=== PATIENT | female | born 1965 | race Hispanic/Latino ===

== ENCOUNTER → 2019-10-06 | Day surgery (SDC) | payer OTHER ==
[2019-10-05 13:31] LABS: BASOPHILS % 0.4 % (0.0-1.0); EOSINOPHILS # (AUTO) 0.1 (0.0-0.4); EOSINOPHILS % 0.7 % (0.0-6.0); HEMATOCRIT 37.6 % (34.2-44.1); HEMOGLOBIN 12.4 g/dL (12.0-16.0); LYMPHOCYTES # (AUTO) 1.4 (1.0-3.2); MEAN CORPUSCULAR HEMOGLOBIN 30.5 pg (28-32); MEAN CORPUSCULAR VOLUME 92.6 fL (81-99); MONOCYTES # (AUTO) 0.4 (0.2-0.8); MONOCYTES % 4.5 % (4.4-11.3); NEUTROPHILS # (AUTO) 6.5 (2.1-6.9); PLATELET COUNT 277 x10e3/uL (140-360); RED BLOOD COUNT 4.06 x10e6/uL (3.6-5.1); RED CELL DISTRIBUTION WIDTH 14.3 % (11.7-14.4)
[2019-10-05 13:51] LABS: ANION GAP 14.6 mmol/L (8-16); BLOOD UREA NITROGEN 8 mg/dL (7-26); BUN/CREATININE RATIO 14 (6-25); CALCIUM 9.5 mg/dL (8.4-10.2); CARBON DIOXIDE 24 mmol/L (22-29); CHLORIDE 104 mmol/L (98-107); CREATININE, SERUM 0.58 mg/dL (0.57-1.11); EST GLOMERULAR FILTRATION RATE > 60 ML/MIN (60-); GLUCOSE 96 mg/dL (74-118); POTASSIUM 3.6 mmol/L (3.5-5.1); SODIUM 139 mmol/L (136-145)
--- NOTE | 2019-10-05 14:03 | Diagnostic Imaging Report ---
EXAMINATION: CHEST 2 VIEWS INDICATION: Pre-operative COMPARISON: None FINDINGS: LINES/TUBES:None LUNGS:The lungs are well-inflated. No focal consolidation or pulmonary edema. PLEURA:No pleural effusion or pneumothorax. MEDIASTINUM:The cardiomediastinal silhouette appears normal in size and shape. BONES/SOFT TISSUES:No acute osseous injury. ABDOMEN:No free air under the diaphragm. IMPRESSION: No focal pneumonia or pulmonary edema. Signed by: Butch Sandhu MD on 10/05/2019 2:01 PM
[~2019-10-06] MED LIST: ACETAMINOPHEN325 M1 PO; BUPIVACAINE 0.25% 30ML SDV INJ ONE; CEFTRIAXONE SOD 1 GM/NS 50 ML 50 ML IV ONE; DEXAMETHASONE SOD PHOS INJ 4 MG/ML VIAL ONE; FENTANYL CITRATE/PF 100MCG/2 ML INJ ONE; GLYCOPYRROLATE INJ 0.2 MG/ML VIAL ONE; KETOROLAC TROMETHAMINE 30 MG/ML VIAL ONE; LIDOCAINE 1% W/EPINEPHRINE 20 ML VIAL ONE; LIDOCAINE HCL 1% LOCAL INJ 20 ML VIAL ONE; LIDOCAINE HCL 2% LOCAL INJ 5 ML SDV VIAL INJ ONE; MIDAZOLAM HCL 2 MG/2 ML VIAL ONE; NEOSTIGMINE 1 MG/ML 10ML VIAL ONE; ONDANSETRON HCL INJ 2MG/ML 2ML 2 MG/ML VIAL ONE; PROPOFOL IV EMULSION 10 MG/ML 20 ML VIAL ONE; ROCURONIUM BROMIDE 10 MG/ML 5ML VIAL ONE; SEVOFLURANE INHAL SOLN 250 ML PEN BTL ONE
--- OUTSIDE RECORDS SUMMARY | 2019-10-06 06:10 | XMS REPORT ---
Author Author [facility] Organization [facility] Address Unknown Phone Unavailable Care Team Providers Care Weight Engineer Name Role Phone Yady HEATH Unavailable Unavailable Payers Payer Name Policy Type Policy Number Effective Date Expiration Date Problems This patient has no known problems. Allergies, Adverse Reactions, Alerts Allergy Name Allergy Type Status Severity Reaction(s) Onset Date Inactive Date Treating Clinician Comments No Known Allergies DA Active U 2015-10-17 00:00:00 Medications This patient has no known medications. Results Test Description Test Time Test Comments Text Results Atomic Results Result Comments CHEST 2 VIEWS 2019-10-05 14:00:00 [place] [address] Patient Name: TINO PHILIP MR #: [id number] : 1965 Age/Sex: 54/F Req #: [id number] Adm Physician: Ordered by: PATT HEATH MD Report #: [id number] Location: OR Room/Bed: Procedure: [id number] DX/CHEST 2 VIEWS Exam Date: 10/05/19 Exam Time: 1330 REPORT STATUS: Signed EXAMINATION: CHEST 2 VIEWS INDICATION: Pre-operative COMPARISON: None FINDINGS: LINES/TUBES:None LUNGS:The lungs are well-inflated. No focal consolidation or pulmonary edema. PLEURA:No pleural effusion or pneumothorax. MEDIASTINUM:The cardiomediastinal silhouette appears normal in size and shape. BONES/SOFT TISSUES:No acute osseous injury. ABDOMEN:No free air under the diaphragm. IMPRESSION: No focal pneumonia or pulmonary edema. Signed by: Ashvin Flores MD on 10/05/2019 2:01 PM Dictated By: ASHVIN FLORES MD 140 Transcribed By: ALIS GREEN on 10/05/191400 COPY TO: PATT HEATH MD COMPREHENSIVE METABOLIC PANEL 2019-09-18 11:08:00 SODIUM (test code=NA) 141 mmol/L 136-145 POTASSIUM (test code=K) 3.7 mmol/L 3.5-5.1 CHLORIDE (test code=CL) 106.0 mmol/L 98-107 CARBON DIOXIDE (test code=CO2) 28.0 mmol/L 21-32 ANION GAP (test code=GAP) 10.7 10-20 GLUCOSE (test code=GLU) 82 mg/dL 74-106 BLOOD UREA NITROGEN (test code=BUN) 7 mg/dL 7-18 GLOMERULAR FILTRATION RATE (test code=GFR) > 60 mL/min >=60 Estimated GFR by using Modified MDRD formula.Chronic kidney disease is defined as either kidney damageor GFR <60 mL/min/1.73 m2 for >3 months. CREATININE (test code=CREAT) 0.60 mg/dL 0.55-1.02 Note change in reference range due to change in reagent. BUN/CREATININE RATIO (test code=BUN/CREA) 11.7 10-20 TOTAL PROTEIN (test code=PROT) 8.3 gram/dL 6.4-8.2 ALBUMIN (test code=ALB) 4.2 g/dL 3.4-5.0 GLOBULIN (test code=GLOB) 4.1 gram/dL 2.7-4.2 ALBUMIN/GLOBULIN RATIO (test code=A/G) 1.0 0.75-1.50 CALCIUM (test code=CA) 9.4 mg/dL 8.5-10.1 BILIRUBIN TOTAL (test code=BILT) 0.60 mg/dL 0.0-1.0 SGOT/AST (test code=AST) 34 IUnit/L 15-37 SGPT/ALT (test code=ALT) 26 IUnit/L 12-78 ALKALINE PHOSPHATASE TOTAL (test code=ALKP) 110 IUnit/L 45-117 Note change in reference range due to change in reagent. LIPID PROFILE (CORONARY RISK)2019-09-18 11:08:00* Test Item Value Reference Range Comments TRIGLYCERIDES (test code=TRIG) 94 mg/dL 20-150 CHOLESTEROL (test code=CHOL) 203 mg/dL 0-200 CHOLESTEROL/HDL RATIO (test code=CHOLHDL) 2.0 RATIO 0-4.9 RISK ASSOCIATED WITH CHOL/HDL RATIOS: Risk Male Female1/2 AVERAGE 3.43 3.27AVERAGE 4.97 4.442X AVERAGE 9.55 7.053X AVERAGE 23.39 11.04 REFERENCE VALUE IS RELATED TO RISK LEVELS ASRECOMMENDED BY THE EDEL. HEART, LUNG, AND BLOOD INST. HDL CHOLESTEROL (test code=HDL) 68 mg/dL 40-60 LIPOPROTEIN LDL (test code=LDL) 105 mg/dL 100-129 RN PERSONNEL, CONTACT PHYSICIAN IMMEDIATELY IF THIS IS A STROKE, AMI OR CAROTID STENOSIS PATIENT WHEN THE LDL >100 (1ST OCCURENCE, THIS ADMISSION) Reference Interval: mg/dL mmol/L Optimal <100 <2.6Near/above optimal 100-129 2.6- 3.3Borderline High 130-159 3.4-4.1High 160-189 4.1-4.9Very High >=190 >=4.9=========This LDL result is a direct measurement.========= T4 [id number] 11:08:00* Test Item Value Reference Range Comments T4 FREE (test code=T4F) 0.96 ng/dL 0.76-1.46 THYROID STIMULATING [id number] 11:08:00* Test Item Value Reference Range Comments THYROID STIMULATING HORMONE (test code=TSH) 5.130 uIU/mL 0.36-3.74 TSH REFERENCE RANGES: EUTHYROID: 0.35 - 4.3 mIU/mL HYPO : > 5.5 mIU/mL HYPER : < 0.35 mIU/mL VITAMIN D [id number] 11:08:00* Test Item Value Reference Range Comments VITAMIN D 25-HYDROXY (test code=VITD25) 14.6 ng/mL 30.0-100.0 Vitamin D deficiency has been defined by the [place] [employer] and an Endocrine Society practice guideline as alevel of serum 25-OH vitamin D less than 20 ng/mL (1,2).The Endocrine Society went on to further define vitamin Dinsufficiency as a level between 21 and 29 ng/mL (2).1. IOM ([place] [employer]). 2010. Dietary reference intakes for calcium and D. [place]: The National Academies Press.2. Kj MF, Marlene NC, Tre MCFARLAND, et al. Evaluation, treatment, and prevention of vitamin D deficiency: an Endocrine Society clinical practice guideline. JCEM. 2010; 96(7):1911-30.Performed At: [facility] [id number] Conteh MD Ph:[phone] performed at: [facility] [id number] COMPREHENSIVE METABOLIC [id number] 10:39:00* Test Item Value Reference Range Comments SODIUM (test code=NA) 141 mmol/L 136-145 POTASSIUM (test code=K) 3.7 mmol/L 3.5-5.1 CHLORIDE (test code=CL) 106.0 mmol/L 98-107 CARBON DIOXIDE (test code=CO2) 28.0 mmol/L 21-32 ANION GAP (test code=GAP) 10.7 10-20 GLUCOSE (test code=GLU) 82 mg/dL 74-106 BLOOD UREA NITROGEN (test code=BUN) 7 mg/dL 7-18 GLOMERULAR FILTRATION RATE (test code=GFR) > 60 mL/min >=60 Estimated GFR by using Modified MDRD formula.Chronic kidney disease is defined as either kidney damageor GFR <60 mL/min/1.73 m2 for >3 months. CREATININE (test code=CREAT) 0.60 mg/dL 0.55-1.02 Note change in reference range due to change in reagent. BUN/CREATININE RATIO (test code=BUN/CREA) 11.7 10-20 TOTAL PROTEIN (test code=PROT) 8.3 gram/dL 6.4-8.2 ALBUMIN (test code=ALB) 4.2 g/dL 3.4-5.0 GLOBULIN (test code=GLOB) 4.1 gram/dL 2.7-4.2 ALBUMIN/GLOBULIN RATIO (test code=A/G) 1.0 0.75-1.50 CALCIUM (test code=CA) 9.4 mg/dL 8.5-10.1 BILIRUBIN TOTAL (test code=BILT) 0.60 mg/dL 0.0-1.0 SGOT/AST (test code=AST) 34 IUnit/L 15-37 SGPT/ALT (test code=ALT) 26 IUnit/L 12-78 ALKALINE PHOSPHATASE TOTAL (test code=ALKP) 110 IUnit/L 45-117 Note change in reference range due to change in reagent. LIPID PROFILE (CORONARY RISK)2019-09-17 10:39:00* Test Item Value Reference Range Comments TRIGLYCERIDES (test code=TRIG) 94 mg/dL 20-150 CHOLESTEROL (test code=CHOL) 203 mg/dL 0-200 CHOLESTEROL/HDL RATIO (test code=CHOLHDL) 2.0 RATIO 0-4.9 RISK ASSOCIATED WITH CHOL/HDL RATIOS: Risk Male Female1/2 AVERAGE 3.43 3.27AVERAGE 4.97 4.442X AVERAGE 9.55 7.053X AVERAGE 23.39 11.04 REFERENCE VALUE IS RELATED TO RISK LEVELS ASRECOMMENDED BY THE EDEL. HEART, LUNG, AND BLOOD INST. HDL CHOLESTEROL (test code=HDL) 68 mg/dL 40-60 LIPOPROTEIN LDL (test code=LDL) 105 mg/dL 100-129 RN PERSONNEL, CONTACT PHYSICIAN IMMEDIATELY IF THIS IS A STROKE, AMI OR CAROTID STENOSIS PATIENT WHEN THE LDL >100 (1ST OCCURENCE, THIS ADMISSION) Reference Interval: mg/dL mmol/L Optimal <100 <2.6Near/above optimal 100-129 2.6- 3.3Borderline High 130-159 3.4-4.1High 160-189 4.1-4.9Very High >=190 >=4.9=========This LDL result is a direct measurement.========= T4 [id number] 10:39:00* Test Item Value Reference Range Comments T4 FREE (test code=T4F) 0.96 ng/dL 0.76-1.46 THYROID STIMULATING [id number] 10:39:00* Test Item Value Reference Range Comments THYROID STIMULATING HORMONE (test code=TSH) 5.130 uIU/mL 0.36-3.74 TSH REFERENCE RANGES: EUTHYROID: 0.35 - 4.3 mIU/mL HYPO : > 5.5 mIU/mL HYPER : < 0.35 mIU/mL VITAMIN D [id number] 10:39:00* Test Item Value Reference Range Comments VITAMIN D 25-HYDROXY (test code=VITD25) ng/mL 30-100 URINALYSIS [id number] 10:24:00* Test Item Value Reference Range Comments UA COLOR (test code=COLU) COLORLESS YELLOW UA APPEARANCE (test code=APPU) CLEAR CLEAR UA GLUCOSE DIPSTICK (test code=DGLUU) NEGATIVE mg/dL NEGATIVE UA BILIRUBIN DIPSTICK (test code=BILU) NEGATIVE mg/dL NEGATIVE UA KETONE DIPSTICK (test code=KETU) NEGATIVE mg/dL NEGATIVE UA SPECIFIC GRAVITY (test code=SGU) 1.004 1.001-1.035 UA BLOOD DIPSTICK (test code=MARGARITA) 0.1 mg/dL (1+) mg/dL NEGATIVE UA PH DIPSTICK (test code=DEEPAK) 6.5 5.0-8.0 UA PROTEIN DIPSTICK (test code=PROU) NEGATIVE mg/dL NEGATIVE UA UROBILINIOGEN DIPSTICK (test code=URO) Normal mg/dL NEGATIVE UA NITRITE DIPSTICK (test code=SEAMUS) NEGATIVE NEGATIVE UA LEUKOCYTE ESTERASE W REFLEX (test code=LEUUR) NEGATIVE Lisseth/uL NEGATIVE UA WBC (test code=WBCU) 0-5 per HPF 0-5 UA RBC (test code=RBCU) 0-2 #/HPF 0-5 UA EPITHELIAL CELLS (test code=EPIU) FEW per HPF FEW UA BACTERIA (test code=BACU) NONE #/HPF NONE UA MUCUS (test code=MUCU) FEW #/LPF FEW UA YEAST (test code=YEASTU) NONE #/HPF NONE UA OVAL FAT BODY (test code=OFBU) NONE NONE [id number] 10:23:00* Test Item Value Reference Range Comments GLYCOSYLATED HEMOGLOBIN (HA1C) (test code=GLYHGB) 5.5 % HbA1 SUGGESTED DIAGNOSIS: HbA1C (%) Diabetic >6.4Prediabetes 5.7 - 6.4Normal <5.7 ESTIMATED AVERAGE GLUCOSE (test code=EAG) 111 MG/DL COMPREHENSIVE METABOLIC [id number] 10:22:00* Test Item Value Reference Range Comments SODIUM (test code=NA) 141 mmol/L 136-145 POTASSIUM (test code=K) 3.7 mmol/L 3.5-5.1 CHLORIDE (test code=CL) 106.0 mmol/L 98-107 CARBON DIOXIDE (test code=CO2) mmol/L 21-32 ANION GAP (test code=GAP) 10-20 GLUCOSE (test code=GLU) mg/dL 74-106 BLOOD UREA NITROGEN (test code=BUN) mg/dL 7-18 GLOMERULAR FILTRATION RATE (test code=GFR) mL/min >=60 CREATININE (test code=CREAT) mg/dL 0.55-1.02 BUN/CREATININE RATIO (test code=BUN/CREA) 10-20 TOTAL PROTEIN (test code=PROT) gram/dL 6.4-8.2 ALBUMIN (test code=ALB) g/dL 3.4-5.0 GLOBULIN (test code=GLOB) gram/dL 2.7-4.2 ALBUMIN/GLOBULIN RATIO (test code=A/G) 0.75-1.50 CALCIUM (test code=CA) mg/dL 8.5-10.1 BILIRUBIN TOTAL (test code=BILT) mg/dL 0.0-1.0 SGOT/AST (test code=AST) IUnit/L 15-37 SGPT/ALT (test code=ALT) IUnit/L 12-78 ALKALINE PHOSPHATASE TOTAL (test code=ALKP) IUnit/L 45-117 LIPID PROFILE (CORONARY RISK)2019-09-17 10:22:00* Test Item Value Reference Range Comments TRIGLYCERIDES (test code=TRIG) mg/dL 20-150 CHOLESTEROL (test code=CHOL) mg/dL 0-200 CHOLESTEROL/HDL RATIO (test code=CHOLHDL) RATIO 0-4.9 HDL CHOLESTEROL (test code=HDL) mg/dL 40-60 LIPOPROTEIN LDL (test code=LDL) mg/dL 100-129 T4 [id number] 10:22:00* Test Item Value Reference Range Comments T4 FREE (test code=T4F) ng/dL 0.76-1.46 THYROID STIMULATING [id number] 10:22:00* Test Item Value Reference Range Comments THYROID STIMULATING HORMONE (test code=TSH) uIU/mL 0.36-3.74 VITAMIN D [id number] 10:22:00* Test Item Value Reference Range Comments VITAMIN D 25-HYDROXY (test code=VITD25) ng/mL 30-100 - US HEAD AND [id number] 10:14:00 Name: TINO PHILIP [facility] : 1965 Age/S: 54 / F [address] [facility] Unit #: [id number] Loc: [place] [address] 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 This may represent an epidermal inclusion cyst. Location: [facility] at 1014 Reported and signed by: Nagi Thorpe MD CC: Luz Aguilera Technologist: VICTORINA LAZAR RT(R),RDMS Trnscb Date/Time: 09/17/2019 (101) t.SDR.RR31 Orig Print D/T: S: 09/17/2019 (1017) Probe: PAGE 1 Signed Report CBC W/AUTO [id number] 09:48:00* Test Item Value Reference Range Comments WHITE BLOOD CELL (test code=WBC) 6.4 K/mm3 4.5-12.5 RED BLOOD CELL (test code=RBC) 4.22 mill/mm3 3.7-5.2 HEMOGLOBIN (test code=HGB) 13.0 gram/dL 11.5-15.5 HEMATOCRIT (test code=HCT) 39.4 % 36.0-46.0 MEAN CELL VOLUME (test code=MCV) 93.4 fL 80-98 MEAN CELL HGB (test code=MCH) 30.8 picogram 27.0-33.0 MEAN CELL HGB CONCETRATION (test code=MCHC) 33.0 gram/dL 33.0-36.0 RED CELL DISTRIBUTION WIDTH (test code=RDW) 14.9 % 11.6-16.2 RED CELL DISTRIBUTION WIDTH SD (test code=RDW-SD) 50.9 fL 37.0-51.0 PLATELET COUNT (test code=PLT) 258 K/mm3 150-450 MEAN PLATELET VOLUME (test code=MPV) 9.1 fL 6.7-11.0 NEUTROPHIL % (test code=NT%) 58.7 % 39.0-69.0 IMMATURE GRANULOCYTE % (test code=IG%) 0.2 % 0.0-5.0 LYMPHOCYTE % (test code=LY%) 31.0 % 25.0-55.0 MONOCYTE % (test code=MO%) 6.6 % 0.0-10.0 EOSINOPHIL % (test code=EO%) 3.0 % 0.0-5.0 BASOPHIL % (test code=BA%) 0.5 % 0.0-1.0 NUCLEATED RBC % (test code=NRBC%) 0.0 % 0-0 NEUTROPHIL # (test code=NT#) 3.75 K/mm3 1.8-7.7 IMMATURE GRANULOCYTE # (test code=IG#) 0.01 x10 3/uL 0-0.03 LYMPHOCYTE # (test code=LY#) 1.98 K/mm3 1.0-5.0 MONOCYTE # (test code=MO#) 0.42 K/mm3 0-0.8 EOSINOPHIL # (test code=EO#) 0.19 K/mm3 0.0-0.5 BASOPHIL # (test code=BA#) 0.03 K/mm3 0.0-0.2 NUCLEATED RBC # (test code=NRBC#) 0.00 K/mm3 0.0-0.1 CBC W/AUTO [id number] 09:46:00* Test Item Value Reference Range Comments WHITE BLOOD CELL (test code=WBC) K/mm3 4.5-12.5 RED BLOOD CELL (test code=RBC) mill/mm3 3.7-5.2 HEMOGLOBIN (test code=HGB) 13.0 gram/dL 11.5-15.5 HEMATOCRIT (test code=HCT) 39.4 % 36.0-46.0 MEAN CELL VOLUME (test code=MCV) fL 80-98 MEAN CELL HGB (test code=MCH) picogram 27.0-33.0 MEAN CELL HGB CONCETRATION (test code=MCHC) gram/dL 33.0-36.0 RED CELL DISTRIBUTION WIDTH (test code=RDW) % 11.6-16.2 RED CELL DISTRIBUTION WIDTH SD (test code=RDW-SD) fL 37.0-51.0 PLATELET COUNT (test code=PLT) K/mm3 150-450 MEAN PLATELET VOLUME (test code=MPV) fL 6.7-11.0 NEUTROPHIL % (test code=NT%) % 39.0-69.0 IMMATURE GRANULOCYTE % (test code=IG%) % 0.0-5.0 LYMPHOCYTE % (test code=LY%) % 25.0-55.0 MONOCYTE % (test code=MO%) % 0.0-10.0 EOSINOPHIL % (test code=EO%) % 0.0-5.0 BASOPHIL % (test code=BA%) % 0.0-1.0 NEUTROPHIL # (test code=NT#) K/mm3 1.8-7.7 LYMPHOCYTE # (test code=LY#) K/mm3 1.0-5.0 MONOCYTE # (test code=MO#) K/mm3 0-0.8 EOSINOPHIL # (test code=EO#) K/mm3 0.0-0.5 BASOPHIL # (test code=BA#) K/mm3 0.0-0.2 CBC W/O [id number] 00:51:00* Test Item Value Reference Range Comments WHITE BLOOD CELL (test code=WBC) 6.8 K/mm3 4.5-12.5 RED BLOOD CELL (test code=RBC) 4.30 mill/mm3 3.7-5.2 HEMOGLOBIN (test code=HGB) 13.1 gram/dL 11.5-15.5 HEMATOCRIT (test code=HCT) 39.7 % 36.0-46.0 MEAN CELL VOLUME (test code=MCV) 92.3 fL 80-98 MEAN CELL HGB (test code=MCH) 30.5 picogram 27.0-33.0 MEAN CELL HGB CONCETRATION (test code=MCHC) 33.0 gram/dL 33.0-36.0 RED CELL DISTRIBUTION WIDTH (test code=RDW) 14.6 % 11.6-16.2 PLATELET COUNT (test code=PLT) 221 K/mm3 150-450 MEAN PLATELET VOLUME (test code=MPV) 9.3 fL 6.7-11.0 CBC W/O [id number] 00:50:00* Test Item Value Reference Range Comments WHITE BLOOD CELL (test code=WBC) K/mm3 4.5-12.5 RED BLOOD CELL (test code=RBC) mill/mm3 3.7-5.2 HEMOGLOBIN (test code=HGB) 13.1 gram/dL 11.5-15.5 HEMATOCRIT (test code=HCT) 39.7 % 36.0-46.0 MEAN CELL VOLUME (test code=MCV) fL 80-98 MEAN CELL HGB (test code=MCH) picogram 27.0-33.0 MEAN CELL HGB CONCETRATION (test code=MCHC) gram/dL 33.0-36.0 RED CELL DISTRIBUTION WIDTH (test code=RDW) % 11.6-16.2 PLATELET COUNT (test code=PLT) K/mm3 150-450 MEAN PLATELET VOLUME (test code=MPV) fL 6.7-11.0 BASIC METABOLIC [id number] 00:41:00* Test Item Value Reference Range Comments SODIUM (test code=NA) 139 mmol/L 136-145 POTASSIUM (test code=K) 3.5 mmol/L 3.5-5.1 CHLORIDE (test code=CL) 104.0 mmol/L 98-107 CARBON DIOXIDE (test code=CO2) 29.0 mmol/L 21-32 ANION GAP (test code=GAP) 9.5 10-20 GLUCOSE (test code=GLU) 83 mg/dL 74-106 BLOOD UREA NITROGEN (test code=BUN) 15 mg/dL 7-18 GLOMERULAR FILTRATION RATE (test code=GFR) > 60 mL/min >=60 Estimated GFR by using Modified MDRD formula.Chronic kidney disease is defined as either kidney damageor GFR <60 mL/min/1.73 m2 for >3 months. CREATININE (test code=CREAT) 0.70 mg/dL 0.55-1.02 Note change in reference range due to change in reagent. BUN/CREATININE RATIO (test code=BUN/CREA) 21.4 10-20 CALCIUM (test code=CA) 9.5 mg/dL 8.5-10.1 [id number] 00:41:00* Test Item Value Reference Range Comments TROPONIN-I (test code=TROPI) <0.015 ng/mL 0-0.045 BASIC METABOLIC [id number] 00:34:00* Test Item Value Reference Range Comments SODIUM (test code=NA) 139 mmol/L 136-145 POTASSIUM (test code=K) 3.5 mmol/L 3.5-5.1 CHLORIDE (test code=CL) 104.0 mmol/L 98-107 CARBON DIOXIDE (test code=CO2) mmol/L 21-32 ANION GAP (test code=GAP) 10-20 GLUCOSE (test code=GLU) mg/dL 74-106 BLOOD UREA NITROGEN (test code=BUN) mg/dL 7-18 GLOMERULAR FILTRATION RATE (test code=GFR) mL/min >=60 CREATININE (test code=CREAT) mg/dL 0.55-1.02 BUN/CREATININE RATIO (test code=BUN/CREA) 10-20 CALCIUM (test code=CA) mg/dL 8.5-10.1 [id number] 00:34:00* Test Item Value Reference Range Comments TROPONIN-I (test code=TROPI) ng/mL 0-0.045 - XR CHEST 1 [id number] 00:20:00 FAX: Ivan Fernandes NP [phone] Winner: St: REG Name: TINO MONTEMAYOR [facility] : [birth year] Age/S: 53/F [address] [facility] Unit #: [id number] Loc: [place] [address] 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 COMPARISON: None available time of interpre tation. FINDINGS: Single AP view of the chest is pro vided. Heart size and vascularity are within normal limits. The juan c gs are clear of focal consolidation. No effusion, pneumothorax, or acute osseous abnormality. IMPRESSION: No radiographic evidence of acute cardiopulmonary process. at 0020 Reported and si gned by: Isaac Garrido MD CC: Ivan Fernandes NP Technologist: Ally Echavarria Trnscrd Date/Time/By: 01/16/2019 (0020) : By: [email or web address] Orig Print D/T: S: 01/16/2019 (0023) PAGE 1 Signed Report
[2019-10-06 12:55] VITALS: BP 110/70
--- NOTE | 2019-10-06 18:54 | Operative Report ---
DATE OF PROCEDURE: 10/06/2019 SURGEON: Tyson Barlow MD PREOPERATIVE DIAGNOSIS: Large mass of the posterior neck and base of the skull. POSTOPERATIVE DIAGNOSIS: Large mass of the posterior neck and base of the skull. OPERATION PERFORMED: Wide excision of large cystic mass of posterior neck and occipital skull with flap closure. ANESTHESIA: General. COMPLICATIONS: None. ESTIMATED BLOOD LOSS: 50 mL. DESCRIPTION OF PROCEDURE: With the patient lying in bed in the prone position under good general endotracheal anesthesia, the back of the neck and scalp and upper shoulders were prepped with Hibiclens solution and draped in the usual manner. The area surrounding the large mass was then infiltrated with 0.25% Marcaine and 1% xylocaine with epinephrine. An elliptical incision was then made to include the skin overlying the center of the mass and then flaps were then developed right at the edge of the wall of the cystic mass all the way around. The mass extended all the way up to the skull and deep wards to the fascia and the muscles of the lateral neck. This was slowly and carefully from all the surrounding structures and totally and completely removed. Quite a bit of the skin in the area had to be removed in order to be able to get the lesion out and then flaps had to be developed in all directions in order to be able to reapproximate the area. The whole area was then thoroughly irrigated. Perfect hemostasis was ascertained. A quarter-inch Joaquim drain was then left in the wound and brought out through a separate stab wound incision and the large defect was then closed using interrupted vertical mattress sutures of 3-0 silk. A dressing was applied. The sponge, lap, and needle count was correct. The patient tolerated the procedure well and returned to the recovery room in stable condition. Tyson Barlow MD JLR/MODL /[id number]
== END | disposition home or self-care (01) ==
LOC: OR 06:08
PROVIDERS: ATTEND Surgery
DX: R22.1 Localized swelling, mass and lump, neck (principal); R22.0 Localized swelling, mass and lump, head; Z01.810 Encounter for preprocedural cardiovascular examination; Z01.812 Encounter for preprocedural laboratory examination; Z01.818 Encounter for other preprocedural examination
CPT/HCPCS: 13132; 21554; 36415; 71046; 80048; 85025; 88304; 93005; J0696; J1100; J1885; J2001 ×2; J2250; J2405; J2704; J2710; J3010